=== PATIENT | female | born 1955 | race Asian ===

== ENCOUNTER → 2017-03-01 | Outpatient (CLI) | payer MEDICAID ==
[~2017-03-01] MED LIST: A20IH1 IH; ACET-2247 PO; ACET104 NEB; ASPI-1198 PO; B CO1CAP4 PO; BISA5TAB12 PR; DSS100 PO; FISH1CAP27 PO; HEP5KI SQ; INSU100V12 SQ; IPRNEB IH; LACT30L PO; METO25XL PO; MONT10TA21 PO; PANT40TA25 PO; PRED20 PO; PROMVCC5L PO; SIMV20TA6 PO
== END | disposition home or self-care (01) ==
LOC: RADPV 09:11
PROVIDERS: ATTEND Internal Medicine Nephrology
DX: Z01.89 Encounter for other specified special examinations (principal); I70.0 Atherosclerosis of aorta; N18.4 Chronic kidney disease, stage 4 (severe); M47.819 Spondylosis without myelopathy or radiculopathy, site unspecified
CPT/HCPCS: 71020

== ENCOUNTER → 2021-01-20 | Outpatient (CLI) | payer MEDICARE, MEDICAID ==
[~2021-01-20] VITALS: Ht 152.4 cm; Wt 76.0 kg
[~2021-01-20] MED LIST changes: -A20IH1 IH; -ACET-2247 PO; -ACET104 NEB; +AMLO5TAB66 PO; -ASPI-1198 PO; +ATOR40TA28 PO; -B CO1CAP4 PO; -BISA5TAB12 PR; +CALC0.25 PO; +CHOL-35 PO; +CINA30 PO; +CLOP75TA60 PO; -DSS100 PO; -FISH1CAP27 PO; +FLUT1BLS9 IH; -HEP5KI SQ; +INSU100I26 SQ; -INSU100V12 SQ; -IPRNEB IH; +ISOS30TA68 PO; -LACT30L PO; +LANT500T7 PO; +LIRA0.6P SQ; +METO25 PO; -METO25XL PO; -MONT10TA21 PO; -PANT40TA25 PO; -PRED20 PO; -PROMVCC5L PO; -SIMV20TA6 PO; +TICA60TA PO; +VIT-13 PO
[2021-01-20 10:57] VITALS: BP 108/65
== END | disposition home or self-care (01) ==
LOC: SRCNTR 09:58
PROVIDERS: ATTEND Internal Medicine Clinical Cardiac Electrophysiology
DX: I13.2 Hypertensive heart and chronic kidney disease with heart failure and with stage 5 chronic kidney disease, or end stage renal disease (principal); N18.6 End stage renal disease; I50.9 Heart failure, unspecified; E78.5 Hyperlipidemia, unspecified; I25.10 Atherosclerotic heart disease of native coronary artery without angina pectoris; Z99.2 Dependence on renal dialysis; Z95.810 Presence of automatic (implantable) cardiac defibrillator
CPT/HCPCS: Q3014

== ENCOUNTER → 2021-02-10 | Outpatient (CLI) | payer MEDICARE, MEDICAID ==
[~2021-02-10] MED LIST changes: -FLUT1BLS9 IH; -TICA60TA PO
== END | disposition home or self-care (01) ==
LOC: RADPV 09:16
PROVIDERS: ATTEND Internal Medicine Clinical Cardiac Electrophysiology
DX: I08.8 Other rheumatic multiple valve diseases (principal); I50.22 Chronic systolic (congestive) heart failure
CPT/HCPCS: 93306

== ENCOUNTER → 2021-05-19 | Outpatient (CLI) | payer MEDICARE, MEDICAID | END | disposition home or self-care (01) | LOC: RADPV 11:07 | PROVIDERS: ATTEND Internal Medicine Clinical Cardiac Electrophysiology | DX: I49.8 Other specified cardiac arrhythmias (principal); I45.10 Unspecified right bundle-branch block; I50.9 Heart failure, unspecified | CPT/HCPCS: 93005 ==

== ENCOUNTER → 2021-05-19 | Outpatient (CLI) | payer MEDICARE, MEDICAID ==
[~2021-05-19] VITALS: Ht 157.5 cm; Wt 75.3 kg
[2021-05-19 10:20] VITALS: BP 117/64
== END | disposition home or self-care (01) ==
LOC: SRCNTR 09:47
PROVIDERS: ATTEND Internal Medicine Clinical Cardiac Electrophysiology
DX: Z45.02 Encounter for adjustment and management of automatic implantable cardiac defibrillator (principal)
CPT/HCPCS: G0463

== ENCOUNTER 2022-11-10 00:55 | Inpatient (IN) | payer MEDICARE, MEDICAID ==
[~2022-11-10] VITALS: Ht 165.1 cm; Wt 78.4 kg
[2022-11-10] VITALS (15 sets, daily range): BP systolic 99–148; BP diastolic 56–89
[~2022-11-10 00:55] MED LIST changes: -CHOL-35 PO; +CHOL25TA4 PO; -CINA30 PO; +FOLI-130 PO; -LIRA0.6P SQ; -VIT-13 PO
[2022-11-10] MEDS ORDERED: ANAS1TAB50 PO (01:09)
[2022-11-10] MEDS ORDERED: CLOP75TA32 PO (01:09)
[2022-11-10 01:22] LABS: COVID AG,FIA SOURCE NASOPHARYNGEAL
[2022-11-10 01:31] LABS: EOSINOPHILS % (AUTO) 2.6 % (1.0-6.0); HEMATOCRIT 38.3 % (36-46); HEMOGLOBIN 11.7 g/dL (12.0-16.0); LYMPHOCYTES # (AUTO) 1.4 K/uL (1.0-4.8); MEAN CORPUSCULAR HEMOGLOBIN 24.1 pg (26.0-34.0); MEAN CORPUSCULAR HGB CONC 30.5 G/dL (31.0-37.0); MEAN CORPUSCULAR VOLUME 79 fL (80-100); MONOCYTES # (AUTO) 0.7 K/uL (0.1-1.0); MONOCYTES % (AUTO) 12.5 % (2.0-9.0); NEUTROPHILS # (AUTO) 3.1 K/uL (1.8-7.7); NEUTROPHILS % (AUTO) 57.9 % (40.0-70.0); PLATELET COUNT (AUTO) 77 K/uL (150-450); RED BLOOD CELL COUNT(AUTO) 4.85 MIL/uL (4.00-5.20); RED CELL DISTRIBUTION WIDTH 17.2 % (11.5-14.5)
[2022-11-10 01:32] LABS: ANION GAP 13 mmol/L (8-16); CALCIUM, TOTAL 10.5 mg/dL (8.8-10.5); CARBON DIOXIDE 28 mmol/L (22-29); CHLORIDE 91 mmol/L (98-107); CREATININE 7.63 mg/dL (0.60-1.30); GLOMERULAR FILTR. RATE CALC 5 mL/min (>60); GLUCOSE,RANDOM 134 mg/dL (70-110); POTASSIUM 5.1 mmol/L (3.5-5.1); SODIUM SERUM 132 mmol/L (136-145)
[2022-11-10 01:41] LABS: INFLUENZA TYPE A NEGATIVE FOR TYPE A (NEGATIVE); INFLUENZA TYPE B NEGATIVE FOR TYPE B (NEGATIVE)
[2022-11-10 01:48] LABS: ALANINE AMINOTRANSFERASE 23 U/L (12-78); ALBUMIN 3.5 g/dL (3.4-5.0); ALKALINE PHOSPHATASE 150 U/L (46-116); ASPARTATE AMINOTRANSFERASE 36 U/L (15-37); BILIRUBIN,TOTAL 0.9 mg/dL (0.1-1.0); CREATINE KINASE, TOTAL ONLY 96 U/L (26-192); TOTAL PROTEIN, SERUM 8.4 g/dL (6.4-8.2)
[2022-11-10 01:55] LABS: B-TYPE NATRIURETIC PEPTIDE > 5000 pg/mL (0-100)
[2022-11-10 02:10] LABS: LACTIC ACID 3.8 mmol/L (0.4-2.0)
[2022-11-10] MEDS ORDERED: FUROSEMIDE 40 MG/4 ML VIAL IVP ONE (02:15)
[2022-11-10] MEDS ORDERED: NITROGLYCERIN 2% (1 GM=INCH) OINTMENT PACKET TP ONE (02:15)
[2022-11-10] MEDS ORDERED: ALBUTEROL SULFATE 2.5 MG/0.5 ML NEB SOLUTION NEB ONE (02:25)
[2022-11-10] MEDS ORDERED: ACETAMINOPHEN 325 MG TABLET PO PRN (02:30)
[2022-11-10] MEDS ORDERED: ONDANSETRON HCL 4 MG/2 ML VIAL IVP PRN ×2 (02:30→03:15)
[2022-11-10] MEDS ORDERED: 0.9% SODIUM CHLORIDE 10 ML SYRINGE IVP PRN (02:30)
[2022-11-10] MEDS ORDERED: ALBUTEROL SULFATE 2.5 MG/0.5 ML NEB SOLUTION NEB PRN (03:15)
[2022-11-10] MEDS ORDERED: IPRATROPIUM BROMIDE 0.5 MG/2.5 ML NEB SOLUTION NEB PRN (03:15)
[2022-11-10 04:35] LABS: ABG BASE EXCESS 3.3 mmol/L (-2.0-3.0); ABG CARBOXYHEMOGLOBIN 0.9 % (0.0-1.5); ABG HCO3 27.5 mmol/L (22.0-26.0); ABG METHEMOGLOBIN 0.3 % (0.0-1.5); ABG OXYGEN CONTENT 15.5 mL/dL (15.0-23.0); ABG OXYGEN SATURATION 94.9 % (95.0-98.0); ABG OXYHEMOGLOBIN 93.8 % (94.0-100.0); ABG PCO2 34 mmHg (35-45); ABG PH 7.506 (7.35-7.450); ABG TOTAL HEMOGLOBIN 11.7 G/dL (12.0-18.0); O2 DEVICE,BLOOD GAS CANNULA (ROOM AIR); PO2, ARTERIAL BG 71.6 mmHg (79.0-87.0); SITE, BLOOD GAS RT RADIAL; SOURCE, BLOOD GAS ARTERIAL; TEMPERATURE, FAHRENHEIT, BG 98.6 FAHREN (96.0-98.6)
[2022-11-10] MEDS ORDERED: BUMETANIDE 0.25 MG/ML 4 ML VIAL IVP ONE (07:00)
[2022-11-10] MEDS: ACETAMINOPHEN 325 MG TABLET PO PRN ×2 (08:02→12:57)
[2022-11-10] MEDS: DOCUSATE SODIUM 100 MG CAPSULE PO SCH ×2 (08:03→21:00)
[2022-11-10] MEDS: HEPARIN SODIUM,PORCINE 5,000 UNITS/ML VIAL SQ SCH ×2 (08:03→16:00)
[2022-11-10] MEDS: CefTRIAXone 1 GM/DEXTROSE 50 ML IV SCH (08:04)
[2022-11-10] MEDS ORDERED: SODIUM CHLORIDE 0.9% 250 ML IV ONE (09:08)
[2022-11-10] MEDS: AZITHROMYCIN 500 MG/NS 250 ML IV SCH (10:17)
[2022-11-10] MEDS: MethylPREDNISolone SOD SUCC 40 MG/ML VIAL IVP SCH ×2 (11:24→17:27)
[2022-11-10] MEDS: SEVELAMER CARBONATE 800 MG TABLET PO SCH (12:57)
[2022-11-10] MEDS: IPRATROPIUM BROMIDE 0.5 MG/2.5 ML NEB SOLUTION NEB SCH (21:00)
[2022-11-10] MEDS: ALBUTEROL SULFATE 2.5 MG/0.5 ML NEB SOLUTION NEB SCH (21:00)
[2022-11-11] VITALS (13 sets, daily range): BP systolic 116–136; BP diastolic 59–82
[2022-11-11] MEDS: HEPARIN SODIUM,PORCINE 5,000 UNITS/ML VIAL SQ SCH ×4 (00:15→23:41)
[2022-11-11] MEDS: MethylPREDNISolone SOD SUCC 40 MG/ML VIAL IVP SCH ×3 (00:16→20:18)
[2022-11-11] MEDS ORDERED: DILTIAZEM HCL 5 MG/ML 5 ML VIAL IVP ONE (02:45)
[2022-11-11] MEDS: ACETAMINOPHEN 325 MG TABLET PO PRN (03:19)
[2022-11-11] MEDS: SEVELAMER CARBONATE 800 MG TABLET PO SCH ×3 (08:00→17:58)
[2022-11-11] MEDS: IPRATROPIUM BROMIDE 0.5 MG/2.5 ML NEB SOLUTION NEB SCH ×4 (08:11→20:21)
[2022-11-11] MEDS: ALBUTEROL SULFATE 2.5 MG/0.5 ML NEB SOLUTION NEB SCH ×4 (08:12→20:21)
[2022-11-11] MEDS: CefTRIAXone 1 GM/DEXTROSE 50 ML IV SCH (08:12)
[2022-11-11] MEDS: DOCUSATE SODIUM 100 MG CAPSULE PO SCH ×2 (08:13→20:19)
[2022-11-11] MEDS: INSULIN GLARGINE,HUM.REC.ANLOG 100 UNITS/ML SQ SCH (08:21)
[2022-11-11] MEDS: AZITHROMYCIN 500 MG/NS 250 ML IV SCH (10:07)
[2022-11-11 11:26] LABS: GLUCOMETER DEV NAME(LOC) 5S.1B; GLUCOSE,POINT OF CARE 191 MG/DL (70-110)
[2022-11-12 00:13] VITALS: BP 140/69
[2022-11-12 05:36] VITALS: BP 145/77
[2022-11-12 06:46] LABS: BASOPHILS % (AUTO) 0.1 % (0.0-2.0); EOSINOPHILS % (AUTO) 0.1 % (1.0-6.0); HEMATOCRIT 36.9 % (36-46); HEMOGLOBIN 11.5 g/dL (12.0-16.0); LYMPHOCYTES # (AUTO) 0.6 K/uL (1.0-4.8); LYMPHOCYTES % (AUTO) 6.6 % (22.0-44.0); MEAN CORPUSCULAR HEMOGLOBIN 24.2 pg (26.0-34.0); MEAN CORPUSCULAR HGB CONC 31.2 G/dL (31.0-37.0); MEAN CORPUSCULAR VOLUME 78 fL (80-100); MONOCYTES # (AUTO) 0.4 K/uL (0.1-1.0); MONOCYTES % (AUTO) 4.1 % (2.0-9.0); PLATELET COUNT (AUTO) 76 K/uL (150-450); RED BLOOD CELL COUNT(AUTO) 4.76 MIL/uL (4.00-5.20); RED CELL DISTRIBUTION WIDTH 17.2 % (11.5-14.5)
[2022-11-12 06:57] LABS: NEUTROPHILS % (AUTO) 89.1 % (40.0-70.0)
[2022-11-12] MEDS: ALBUTEROL SULFATE 2.5 MG/0.5 ML NEB SOLUTION NEB SCH ×4 (07:04→20:32)
[2022-11-12] MEDS: IPRATROPIUM BROMIDE 0.5 MG/2.5 ML NEB SOLUTION NEB SCH ×4 (07:04→20:32)
[2022-11-12 07:05] LABS: ALBUMIN 2.9 g/dL (3.4-5.0); BILIRUBIN,TOTAL 0.7 mg/dL (0.1-1.0); CALCIUM, TOTAL 11.3 mg/dL (8.8-10.5); CREATININE 5.12 mg/dL (0.60-1.30); POTASSIUM 4.6 mmol/L (3.5-5.1); TOTAL PROTEIN, SERUM 7.5 g/dL (6.4-8.2)
[2022-11-12 07:12] VITALS: BP 135/76
[2022-11-12] MEDS: SEVELAMER CARBONATE 800 MG TABLET PO SCH ×3 (09:18→17:50)
[2022-11-12] MEDS: HEPARIN SODIUM,PORCINE 5,000 UNITS/ML VIAL SQ SCH ×3 (09:22→23:58)
[2022-11-12] MEDS: DOCUSATE SODIUM 100 MG CAPSULE PO SCH ×2 (09:26→20:41)
[2022-11-12] MEDS: CefTRIAXone 1 GM/DEXTROSE 50 ML IV SCH (09:26)
[2022-11-12] MEDS: ACETAMINOPHEN 325 MG TABLET PO PRN (09:36)
[2022-11-12] MEDS: INSULIN GLARGINE,HUM.REC.ANLOG 100 UNITS/ML SQ SCH (09:43)
[2022-11-12] MEDS: MethylPREDNISolone SOD SUCC 40 MG/ML VIAL IVP SCH ×2 (09:46→20:40)
[2022-11-12] MEDS ORDERED: NITROGLYCERIN 0.4 MG SUBLINGUAL TABLET #25 SL ONE (10:00)
[2022-11-12] MEDS ORDERED: ASPIRIN 325 MG DR TABLET PO ONE (10:00)
[2022-11-12 10:12] VITALS: BP 132/80
[2022-11-12] MEDS: AZITHROMYCIN 500 MG/NS 250 ML IV SCH (10:20)
[2022-11-12] MEDS: EPOETIN ALFA 10,000 UNITS/ML 2 ML VIAL SQ SCH (10:20)
[2022-11-12] MEDS ORDERED: DEXTROSE 50%-WATER 25 GM/50 ML SYRINGE IVP PRN (12:30)
[2022-11-12] MEDS: INSULIN LISPRO 100 UNITS/ML SQ PRN ×3 (12:36→21:21)
[2022-11-12] MEDS: ISOSORBIDE MONONITRATE 30 MG ER TABLET PO SCH (12:46)
[2022-11-12] MEDS: ANASTROZOLE 1 MG TABLET PO SCH (13:50)
[2022-11-12 16:04] VITALS: BP 136/65
[2022-11-12 17:26] LABS: GLUCOMETER DEV NAME(LOC) 5N.2C; GLUCOSE,POINT OF CARE 253 MG/DL (70-110)
[2022-11-12] MEDS ORDERED: GuaiFENesin/D-METHORPHAN [SUGAR-FREE] 200-20MG/10 ML SYRUP UDCUP PO PRN (18:00)
[2022-11-12 20:04] VITALS: BP 148/80
[2022-11-12 20:31] LABS: GLUCOMETER DEV NAME(LOC) 5N.1C; GLUCOSE,POINT OF CARE 296 MG/DL (70-110)
[2022-11-13] VITALS (14 sets, daily range): BP systolic 130–148; BP diastolic 65–89
[2022-11-13 06:01] LABS: GLUCOMETER DEV NAME(LOC) 5S.1B; GLUCOSE,POINT OF CARE 310 MG/DL (70-110)
[2022-11-13] MEDS: INSULIN LISPRO 100 UNITS/ML SQ PRN ×3 (06:19→21:11)
[2022-11-13 06:20] LABS: BASOPHILS % (AUTO) 0.2 % (0.0-2.0); EOSINOPHILS % (AUTO) 0 % (1.0-6.0); HEMATOCRIT 35.8 % (36-46); HEMOGLOBIN 11.4 g/dL (12.0-16.0); LYMPHOCYTES # (AUTO) 0.5 K/uL (1.0-4.8); LYMPHOCYTES % (AUTO) 5.8 % (22.0-44.0); MEAN CORPUSCULAR HEMOGLOBIN 24.3 pg (26.0-34.0); MEAN CORPUSCULAR HGB CONC 31.8 G/dL (31.0-37.0); MEAN CORPUSCULAR VOLUME 77 fL (80-100); MONOCYTES # (AUTO) 0.4 K/uL (0.1-1.0); MONOCYTES % (AUTO) 4.6 % (2.0-9.0); NEUTROPHILS # (AUTO) 7.6 K/uL (1.8-7.7); PLATELET COUNT (AUTO) 88 K/uL (150-450); RED BLOOD CELL COUNT(AUTO) 4.67 MIL/uL (4.00-5.20)
[2022-11-13 06:22] LABS: NEUTROPHILS % (AUTO) 89.4 % (40.0-70.0)
[2022-11-13 06:30] LABS: ALBUMIN 3.1 g/dL (3.4-5.0); BILIRUBIN,TOTAL 0.7 mg/dL (0.1-1.0); CREATININE 7.46 mg/dL (0.60-1.30); POTASSIUM 4.5 mmol/L (3.5-5.1); TOTAL PROTEIN, SERUM 7.4 g/dL (6.4-8.2)
[2022-11-13 06:46] LABS: CALCIUM, TOTAL 11.7 mg/dL (8.8-10.5)
[2022-11-13 07:01] LABS: GLUCOMETER DEV NAME(LOC) 5S.1B; GLUCOSE,POINT OF CARE 202 MG/DL (70-110)
[2022-11-13] MEDS: HEPARIN SODIUM,PORCINE 5,000 UNITS/ML VIAL SQ SCH ×2 (08:00→09:57)
[2022-11-13] MEDS: ALBUTEROL SULFATE 2.5 MG/0.5 ML NEB SOLUTION NEB SCH ×4 (08:28→21:13)
[2022-11-13] MEDS: IPRATROPIUM BROMIDE 0.5 MG/2.5 ML NEB SOLUTION NEB SCH ×4 (08:28→21:13)
[2022-11-13] MEDS: CLOPIDOGREL BISULFATE 75 MG TABLET PO SCH (09:56)
[2022-11-13] MEDS: ISOSORBIDE MONONITRATE 30 MG ER TABLET PO SCH (09:56)
[2022-11-13] MEDS: SEVELAMER CARBONATE 800 MG TABLET PO SCH ×3 (09:56→17:19)
[2022-11-13] MEDS: DOCUSATE SODIUM 100 MG CAPSULE PO SCH ×2 (09:56→20:59)
[2022-11-13] MEDS: CefTRIAXone 1 GM/DEXTROSE 50 ML IV SCH (09:57)
[2022-11-13] MEDS: ANASTROZOLE 1 MG TABLET PO SCH (09:57)
[2022-11-13] MEDS: MethylPREDNISolone SOD SUCC 40 MG/ML VIAL IVP SCH ×2 (09:57→20:58)
[2022-11-13] MEDS: INSULIN GLARGINE,HUM.REC.ANLOG 100 UNITS/ML SQ SCH (10:13)
[2022-11-13] MEDS: AZITHROMYCIN 500 MG/NS 250 ML IV SCH (10:51)
[2022-11-13 12:41] LABS: GLUCOMETER DEV NAME(LOC) 5S.2C; GLUCOSE,POINT OF CARE 262 MG/DL (70-110)
[2022-11-13 12:41] LABS: GLUCOMETER DEV NAME(LOC) 5S.2C; GLUCOSE,POINT OF CARE 292 MG/DL (70-110)
[2022-11-13 17:51] LABS: GLUCOMETER DEV NAME(LOC) 5N.2C; GLUCOSE,POINT OF CARE 195 MG/DL (70-110)
[2022-11-13] MEDS: DEXTROSE 5%-0.45% SODIUM CHL 1,000 ML IV SCH (18:46)
[2022-11-13 21:26] LABS: GLUCOMETER DEV NAME(LOC) 5S.1B; GLUCOSE,POINT OF CARE 190 MG/DL (70-110)
[2022-11-14 04:01] VITALS: BP 142/84
[2022-11-14] MEDS: INSULIN LISPRO 100 UNITS/ML SQ PRN ×4 (05:55→20:16)
[2022-11-14 06:58] LABS: HEMATOCRIT 38.4 % (36-46); MEAN CORPUSCULAR HEMOGLOBIN 24.3 pg (26.0-34.0); MEAN CORPUSCULAR HGB CONC 31.2 G/dL (31.0-37.0); MEAN CORPUSCULAR VOLUME 78 fL (80-100); PLATELET COUNT (AUTO) 102 K/uL (150-450); RED BLOOD CELL COUNT(AUTO) 4.93 MIL/uL (4.00-5.20); RED CELL DISTRIBUTION WIDTH 17.5 % (11.5-14.5)
[2022-11-14] MEDS: IPRATROPIUM BROMIDE 0.5 MG/2.5 ML NEB SOLUTION NEB SCH ×4 (07:51→20:50)
[2022-11-14] MEDS: ALBUTEROL SULFATE 2.5 MG/0.5 ML NEB SOLUTION NEB SCH ×4 (07:51→20:51)
[2022-11-14 07:54] LABS: BILIRUBIN,TOTAL 0.9 mg/dL (0.1-1.0); CREATININE 4.69 mg/dL (0.60-1.30); POTASSIUM 4.9 mmol/L (3.5-5.1)
[2022-11-14 07:55] LABS: ALBUMIN 3.1 g/dL (3.4-5.0); TOTAL PROTEIN, SERUM 7.4 g/dL (6.4-8.2)
[2022-11-14 07:56] LABS: CALCIUM, TOTAL 11.6 mg/dL (8.8-10.5)
[2022-11-14] MEDS: SEVELAMER CARBONATE 800 MG TABLET PO SCH ×3 (08:00→17:57)
[2022-11-14] MEDS ORDERED: SODIUM CHLORIDE 0.9% 1,000 ML ONE (08:00)
[2022-11-14 08:27] VITALS: BP 125/76
[2022-11-14 08:38] LABS: BAND NEUTROPHILS % (MANUAL) 5 % (0-5); LYMPHOCYTES % (MANUAL) 4 % (22-44); SEGMENTED NEUTROPHILS % 91 % (40-70)
[2022-11-14 08:46] LABS: GLUCOMETER DEV NAME(LOC) 5S.2C; GLUCOSE,POINT OF CARE 254 MG/DL (70-110)
[2022-11-14] MEDS: DOCUSATE SODIUM 100 MG CAPSULE PO SCH ×2 (09:00→20:12)
[2022-11-14] MEDS: INSULIN GLARGINE,HUM.REC.ANLOG 100 UNITS/ML SQ SCH (09:00)
[2022-11-14] MEDS: CLOPIDOGREL BISULFATE 75 MG TABLET PO SCH (09:00)
[2022-11-14] MEDS: ISOSORBIDE MONONITRATE 30 MG ER TABLET PO SCH (09:00)
[2022-11-14] MEDS: ANASTROZOLE 1 MG TABLET PO SCH (09:00)
[2022-11-14] MEDS: PredniSONE 20 MG TABLET PO SCH (09:00)
[2022-11-14] MEDS: CefTRIAXone 1 GM/DEXTROSE 50 ML IV SCH (10:06)
[2022-11-14] MEDS: DEXTROSE 5%-0.45% SODIUM CHL 1,000 ML IV SCH ×2 (10:07→20:26)
[2022-11-14] MEDS ORDERED: INSULIN GLARGINE,HUM.REC.ANLOG 100 UNITS/ML SQ ONE (11:00)
[2022-11-14] MEDS: AZITHROMYCIN 500 MG/NS 250 ML IV SCH (11:05)
[2022-11-14 11:40] VITALS: BP 136/77
[2022-11-14] MEDS: CINACALCET HCL 30 MG TABLET PO SCH (13:45)
[2022-11-14 15:42] VITALS: BP 129/78
[2022-11-14 18:12] LABS: GLUCOMETER DEV NAME(LOC) 5S.2C; GLUCOSE,POINT OF CARE 210 MG/DL (70-110)
[2022-11-14 18:12] LABS: GLUCOMETER DEV NAME(LOC) 5S.2C; GLUCOSE,POINT OF CARE 239 MG/DL (70-110)
[2022-11-14 19:20] VITALS: BP 165/61
[2022-11-14] MEDS ORDERED: HydrALAZINE HCL 20 MG/ML VIAL IVP PRN (20:00)
[2022-11-14 20:11] LABS: GLUCOMETER DEV NAME(LOC) 5N.2C; GLUCOSE,POINT OF CARE 231 MG/DL (70-110)
[2022-11-14] MEDS: ACETAMINOPHEN 325 MG TABLET PO PRN (23:08)
[2022-11-14 23:45] VITALS: BP 152/73
[2022-11-15] VITALS (13 sets, daily range): BP systolic 113–148; BP diastolic 54–82
[2022-11-15] MEDS: ACETAMINOPHEN 325 MG TABLET PO PRN ×2 (03:19→18:04)
[2022-11-15] MEDS ORDERED: DIGOXIN 250 MCG/ML 2 ML AMP IVP ONE ×2 (04:30→18:15)
[2022-11-15] MEDS: INSULIN LISPRO 100 UNITS/ML SQ PRN ×3 (06:13→20:10)
[2022-11-15 06:58] LABS: EOSINOPHILS % (AUTO) 0.1 % (1.0-6.0); HEMATOCRIT 38.2 % (36-46); HEMOGLOBIN 11.9 g/dL (12.0-16.0); LYMPHOCYTES # (AUTO) 0.7 K/uL (1.0-4.8); MEAN CORPUSCULAR HEMOGLOBIN 24.1 pg (26.0-34.0); MEAN CORPUSCULAR HGB CONC 31.3 G/dL (31.0-37.0); MEAN CORPUSCULAR VOLUME 77 fL (80-100); MONOCYTES # (AUTO) 0.7 K/uL (0.1-1.0); MONOCYTES % (AUTO) 9.2 % (2.0-9.0); NEUTROPHILS # (AUTO) 6.2 K/uL (1.8-7.7); NEUTROPHILS % (AUTO) 81.7 % (40.0-70.0); PLATELET COUNT (AUTO) 87 K/uL (150-450); RED BLOOD CELL COUNT(AUTO) 4.95 MIL/uL (4.00-5.20); RED CELL DISTRIBUTION WIDTH 17.4 % (11.5-14.5)
[2022-11-15 07:06] LABS: GLUCOMETER DEV NAME(LOC) 5S.2C; GLUCOSE,POINT OF CARE 175 MG/DL (70-110)
[2022-11-15 07:33] LABS: ALBUMIN 2.9 g/dL (3.4-5.0); BILIRUBIN,TOTAL 0.8 mg/dL (0.1-1.0); CALCIUM, TOTAL 11.2 mg/dL (8.8-10.5); CREATININE 6.59 mg/dL (0.60-1.30); POTASSIUM 4.6 mmol/L (3.5-5.1)
[2022-11-15] MEDS: CefTRIAXone 1 GM/DEXTROSE 50 ML IV SCH (07:50)
[2022-11-15] MEDS: IPRATROPIUM BROMIDE 0.5 MG/2.5 ML NEB SOLUTION NEB SCH ×4 (07:55→19:33)
[2022-11-15] MEDS: ALBUTEROL SULFATE 2.5 MG/0.5 ML NEB SOLUTION NEB SCH ×4 (07:55→19:33)
[2022-11-15] MEDS: CINACALCET HCL 30 MG TABLET PO SCH (08:00)
[2022-11-15] MEDS: SEVELAMER CARBONATE 800 MG TABLET PO SCH ×3 (08:00→15:05)
[2022-11-15 08:03] LABS: MAGNESIUM 2.9 mg/dL (1.80-2.40); PHOSPHORUS 7.4 mg/dL (2.5-4.9)
[2022-11-15] MEDS: AZITHROMYCIN 500 MG/NS 250 ML IV SCH (08:35)
[2022-11-15] MEDS: ISOSORBIDE MONONITRATE 30 MG ER TABLET PO SCH (08:37)
[2022-11-15] MEDS: CLOPIDOGREL BISULFATE 75 MG TABLET PO SCH (08:37)
[2022-11-15] MEDS: ANASTROZOLE 1 MG TABLET PO SCH (08:37)
[2022-11-15] MEDS: DOCUSATE SODIUM 100 MG CAPSULE PO SCH ×2 (08:37→20:09)
[2022-11-15] MEDS: PredniSONE 20 MG TABLET PO SCH (08:38)
[2022-11-15] MEDS: EPOETIN ALFA 10,000 UNITS/ML 2 ML VIAL SQ SCH ×2 (08:39→08:47)
[2022-11-15] MEDS: INSULIN GLARGINE,HUM.REC.ANLOG 100 UNITS/ML SQ SCH ×2 (08:41→08:47)
[2022-11-15 10:16] LABS: GLUCOMETER DEV NAME(LOC) 5S.1B; GLUCOSE,POINT OF CARE 203 MG/DL (70-110)
[2022-11-15] MEDS: DEXTROSE 5%-0.45% SODIUM CHL 1,000 ML IV SCH (10:49)
[2022-11-15] MEDS ORDERED: SODIUM CHLORIDE 0.9% 1,000 ML ONE (11:14)
[2022-11-15 14:01] LABS: GLUCOMETER DEV NAME(LOC) 5S.2C; GLUCOSE,POINT OF CARE 112 MG/DL (70-110)
[2022-11-15] MEDS: CARVEDILOL 3.125 MG TABLET PO SCH ×2 (15:05→20:09)
[2022-11-15 17:21] LABS: GLUCOMETER DEV NAME(LOC) 5S.1B; GLUCOSE,POINT OF CARE 182 MG/DL (70-110)
[2022-11-15] MEDS: AMIODARONE HCL 200 MG TABLET PO SCH (18:00)
[2022-11-15] MEDS ORDERED: DEXTROSE 50%-WATER 25 GM/50 ML SYRINGE IVP PRN (19:45)
[2022-11-15 19:50] LABS: GLUCOMETER DEV NAME(LOC) 5N.2C; GLUCOSE,POINT OF CARE 206 MG/DL (70-110)
[2022-11-16] VITALS: BP 134/82
[2022-11-16 04:00] VITALS: BP 137/76
[2022-11-16] MEDS: INSULIN LISPRO 100 UNITS/ML SQ PRN ×4 (05:49→20:23)
[2022-11-16 05:52] LABS: GLUCOMETER DEV NAME(LOC) 5N.1C; GLUCOSE,POINT OF CARE 114 MG/DL (70-110)
[2022-11-16 05:52] LABS: GLUCOMETER DEV NAME(LOC) 5N.1C; GLUCOSE,POINT OF CARE 54 MG/DL (70-110)
[2022-11-16 06:39] LABS: ALBUMIN 2.7 g/dL (3.4-5.0); BILIRUBIN,TOTAL 0.9 mg/dL (0.1-1.0); CALCIUM, TOTAL 10.2 mg/dL (8.8-10.5); CREATININE 5.89 mg/dL (0.60-1.30); POTASSIUM 4.9 mmol/L (3.5-5.1); TOTAL PROTEIN, SERUM 6.8 g/dL (6.4-8.2)
[2022-11-16 06:50] LABS: HEMATOCRIT 39.8 % (36-46); HEMOGLOBIN 12.5 g/dL (12.0-16.0); MEAN CORPUSCULAR HEMOGLOBIN 24.2 pg (26.0-34.0); MEAN CORPUSCULAR HGB CONC 31.4 G/dL (31.0-37.0); MEAN CORPUSCULAR VOLUME 77 fL (80-100); RED BLOOD CELL COUNT(AUTO) 5.16 MIL/uL (4.00-5.20); RED CELL DISTRIBUTION WIDTH 18.1 % (11.5-14.5)
[2022-11-16 07:14] LABS: BAND NEUTROPHILS % (MANUAL) 0 % (0-5); PLATELET COUNT (AUTO) 84 K/uL (150-450)
[2022-11-16 07:16] LABS: CORRECTED WHITE BLOOD COUNT 6.3 K/uL (4.5-11.0); LYMPHOCYTES % (MANUAL) 9 % (22-44); SEGMENTED NEUTROPHILS % 91 % (40-70)
[2022-11-16 07:23] LABS: DIGOXIN 1.27 ng/mL (0.90-2.00)
[2022-11-16] MEDS: SEVELAMER CARBONATE 800 MG TABLET PO SCH ×3 (08:07→17:17)
[2022-11-16] MEDS: CefTRIAXone 1 GM/DEXTROSE 50 ML IV SCH (08:07)
[2022-11-16] MEDS: CINACALCET HCL 30 MG TABLET PO SCH (08:07)
[2022-11-16] MEDS: CARVEDILOL 3.125 MG TABLET PO SCH ×2 (08:08→20:22)
[2022-11-16] MEDS: CLOPIDOGREL BISULFATE 75 MG TABLET PO SCH (08:08)
[2022-11-16] MEDS: PredniSONE 20 MG TABLET PO SCH (08:08)
[2022-11-16] MEDS: ISOSORBIDE MONONITRATE 30 MG ER TABLET PO SCH (08:08)
[2022-11-16] MEDS: AZITHROMYCIN 500 MG/NS 250 ML IV SCH (08:08)
[2022-11-16] MEDS: AMIODARONE HCL 200 MG TABLET PO SCH (08:08)
[2022-11-16] MEDS: ANASTROZOLE 1 MG TABLET PO SCH (08:08)
[2022-11-16] MEDS: DOCUSATE SODIUM 100 MG CAPSULE PO SCH ×2 (08:08→20:22)
[2022-11-16] MEDS: INSULIN GLARGINE,HUM.REC.ANLOG 100 UNITS/ML SQ SCH (08:09)
[2022-11-16] MEDS: ALBUTEROL SULFATE 2.5 MG/0.5 ML NEB SOLUTION NEB SCH ×4 (08:44→19:18)
[2022-11-16] MEDS: IPRATROPIUM BROMIDE 0.5 MG/2.5 ML NEB SOLUTION NEB SCH ×4 (08:45→19:18)
[2022-11-16 08:53] VITALS: BP 143/75
[2022-11-16 12:21] LABS: GLUCOMETER DEV NAME(LOC) 5N.2C; GLUCOSE,POINT OF CARE 211 MG/DL (70-110)
[2022-11-16 13:59] VITALS: BP 143/70
[2022-11-16 16:41] VITALS: BP 144/69
[2022-11-16] MEDS: APIXABAN 2.5 MG TABLET PO SCH ×2 (17:17→20:22)
[2022-11-16 20:00] VITALS: BP 153/72
[2022-11-16 20:56] LABS: GLUCOMETER DEV NAME(LOC) 5S.1B; GLUCOSE,POINT OF CARE 271 MG/DL (70-110)
[2022-11-16 20:56] LABS: GLUCOMETER DEV NAME(LOC) 5S.1B; GLUCOSE,POINT OF CARE 203 MG/DL (70-110)
[2022-11-16 23:11] LABS: GLUCOMETER DEV NAME(LOC) 5S.2C; GLUCOSE,POINT OF CARE 173 MG/DL (70-110)
[2022-11-17] VITALS (15 sets, daily range): BP systolic 109–164; BP diastolic 46–82
[2022-11-17] MEDS: ACETAMINOPHEN 325 MG TABLET PO PRN (01:13)
[2022-11-17] MEDS: INSULIN LISPRO 100 UNITS/ML SQ PRN ×3 (05:49→17:34)
[2022-11-17 06:06] LABS: GLUCOMETER DEV NAME(LOC) 5S.2C; GLUCOSE,POINT OF CARE 157 MG/DL (70-110)
[2022-11-17 06:26] LABS: BASOPHILS % (AUTO) 0.1 % (0.0-2.0); EOSINOPHILS % (AUTO) 4.3 % (1.0-6.0); HEMATOCRIT 39.5 % (36-46); HEMOGLOBIN 12.6 g/dL (12.0-16.0); LYMPHOCYTES # (AUTO) 0.5 K/uL (1.0-4.8); LYMPHOCYTES % (AUTO) 6.9 % (22.0-44.0); MEAN CORPUSCULAR HEMOGLOBIN 24.6 pg (26.0-34.0); MEAN CORPUSCULAR HGB CONC 31.8 G/dL (31.0-37.0); MEAN CORPUSCULAR VOLUME 77 fL (80-100); MONOCYTES # (AUTO) 0.8 K/uL (0.1-1.0); MONOCYTES % (AUTO) 9.8 % (2.0-9.0); NEUTROPHILS # (AUTO) 6.3 K/uL (1.8-7.7); NEUTROPHILS % (AUTO) 78.9 % (40.0-70.0); PLATELET COUNT (AUTO) 73 K/uL (150-450); RED BLOOD CELL COUNT(AUTO) 5.12 MIL/uL (4.00-5.20)
[2022-11-17 06:45] LABS: ALBUMIN 2.8 g/dL (3.4-5.0); BILIRUBIN,TOTAL 0.7 mg/dL (0.1-1.0); CALCIUM, TOTAL 10.9 mg/dL (8.8-10.5); CREATININE 7.35 mg/dL (0.60-1.30); POTASSIUM 5.8 mmol/L (3.5-5.1); TOTAL PROTEIN, SERUM 6.9 g/dL (6.4-8.2)
[2022-11-17] MEDS: SEVELAMER CARBONATE 800 MG TABLET PO SCH ×3 (08:00→17:37)
[2022-11-17] MEDS ORDERED: CINACALCET HCL 30 MG TABLET PO SCH (08:15)
[2022-11-17] MEDS: IPRATROPIUM BROMIDE 0.5 MG/2.5 ML NEB SOLUTION NEB SCH ×3 (08:24→16:54)
[2022-11-17] MEDS: ALBUTEROL SULFATE 2.5 MG/0.5 ML NEB SOLUTION NEB SCH ×3 (08:24→16:55)
[2022-11-17] MEDS: INSULIN GLARGINE,HUM.REC.ANLOG 100 UNITS/ML SQ SCH (09:00)
[2022-11-17] MEDS ORDERED: SODIUM CHLORIDE 0.9% 2,000 ML ONE (12:02)
[2022-11-17] MEDS: CefTRIAXone 1 GM/DEXTROSE 50 ML IV SCH (12:14)
[2022-11-17] MEDS: AZITHROMYCIN 500 MG/NS 250 ML IV SCH (12:15)
[2022-11-17] MEDS: ANASTROZOLE 1 MG TABLET PO SCH (12:15)
[2022-11-17] MEDS: APIXABAN 2.5 MG TABLET PO SCH (12:16)
[2022-11-17] MEDS: AMIODARONE HCL 200 MG TABLET PO SCH (12:16)
[2022-11-17] MEDS: CARVEDILOL 3.125 MG TABLET PO SCH (12:16)
[2022-11-17] MEDS: DOCUSATE SODIUM 100 MG CAPSULE PO SCH (12:16)
[2022-11-17] MEDS: PredniSONE 20 MG TABLET PO SCH (12:16)
[2022-11-17] MEDS: ISOSORBIDE MONONITRATE 30 MG ER TABLET PO SCH (12:16)
[2022-11-17] MEDS: EPOETIN ALFA 10,000 UNITS/ML 2 ML VIAL SQ SCH (12:17)
[2022-11-17] MEDS: CLOPIDOGREL BISULFATE 75 MG TABLET PO SCH (12:17)
[2022-11-17] MEDS ORDERED: AMOX1TAB16 PO (15:28)
[2022-11-17] MEDS ORDERED: CARV3 PO (15:28)
[2022-11-17] MEDS ORDERED: AMIO200 PO (15:28)
[2022-11-17] MEDS ORDERED: APIX2.5T PO (15:28)
[2022-11-17] MEDS ORDERED: CINA30 PO (15:28)
[2022-11-17] MEDS ORDERED: PRED-729 PO (15:28)
[2022-11-17] MEDS ORDERED: SEVE800T17 PO (15:28)
[2022-11-17] MEDS ORDERED: ALBU18HF12 IH (15:29)
[2022-11-17 17:01] LABS: GLUCOMETER DEV NAME(LOC) 5N.2C; GLUCOSE,POINT OF CARE 138 MG/DL (70-110)
[2022-11-18 02:11] LABS: GLUCOMETER DEV NAME(LOC) 5S.1B; GLUCOSE,POINT OF CARE 246 MG/DL (70-110)
== END 2022-11-17 18:15 | disposition home or self-care (01) | DRG 280 ==
LOC: EMS 00:56 → 5S 02:00
PROVIDERS: ADMIT Internal Medicine; ATTEND Internal Medicine
PROC: 5A09357 Assistance with Respiratory Ventilation, Less than 24 Consecutive Hours, Continuous Positive Airway Pressure (ICD-10-PCS; principal; 2022-11-10)
PROC: 5A1D70Z Performance of Urinary Filtration, Intermittent, Less than 6 Hours Per Day (ICD-10-PCS; 2022-11-10)
PROC: 5A1D70Z Performance of Urinary Filtration, Intermittent, Less than 6 Hours Per Day (ICD-10-PCS; 2022-11-11)
PROC: 5A1D70Z Performance of Urinary Filtration, Intermittent, Less than 6 Hours Per Day (ICD-10-PCS; 2022-11-13)
PROC: 05HB33Z Insertion of Infusion Device into Right Basilic Vein, Percutaneous Approach (ICD-10-PCS; 2022-11-14)
PROC: 0DJ08ZZ Inspection of Upper Intestinal Tract, Via Natural or Artificial Opening Endoscopic (ICD-10-PCS; 2022-11-15)
PROC: 5A1D70Z Performance of Urinary Filtration, Intermittent, Less than 6 Hours Per Day (ICD-10-PCS; 2022-11-15)
PROC: 5A1D70Z Performance of Urinary Filtration, Intermittent, Less than 6 Hours Per Day (ICD-10-PCS; 2022-11-17)
DX: I13.2 Hypertensive heart and chronic kidney disease with heart failure and with stage 5 chronic kidney disease, or end stage renal disease (principal); I21.A1 Myocardial infarction type 2; I50.23 Acute on chronic systolic (congestive) heart failure; J18.9 Pneumonia, unspecified organism; N18.6 End stage renal disease; J96.01 Acute respiratory failure with hypoxia; E87.20 Acidosis, unspecified; J44.1 Chronic obstructive pulmonary disease with (acute) exacerbation; J44.0 Chronic obstructive pulmonary disease with (acute) lower respiratory infection; E87.4 Mixed disorder of acid-base balance; I25.10 Atherosclerotic heart disease of native coronary artery without angina pectoris; Z20.822 Contact with and (suspected) exposure to COVID-19; E78.00 Pure hypercholesterolemia, unspecified; E21.3 Hyperparathyroidism, unspecified; I25.5 Ischemic cardiomyopathy; I48.91 Unspecified atrial fibrillation; I34.0 Nonrheumatic mitral (valve) insufficiency; E87.5 Hyperkalemia; R13.10 Dysphagia, unspecified; D64.9 Anemia, unspecified; E11.21 Type 2 diabetes mellitus with diabetic nephropathy; E11.22 Type 2 diabetes mellitus with diabetic chronic kidney disease; Z99.2 Dependence on renal dialysis; Z79.01 Long term (current) use of anticoagulants; Z79.899 Other long term (current) drug therapy; Z79.02 Long term (current) use of antithrombotics/antiplatelets; Z79.4 Long term (current) use of insulin; Z95.5 Presence of coronary angioplasty implant and graft; Z85.3 Personal history of malignant neoplasm of breast; Z87.442 Personal history of urinary calculi; Z90.5 Acquired absence of kidney; Z95.1 Presence of aortocoronary bypass graft; Z95.810 Presence of automatic (implantable) cardiac defibrillator; Z82.49 Family history of ischemic heart disease and other diseases of the circulatory system; Z83.3 Family history of diabetes mellitus
CPT/HCPCS: 36245; 36569; 71045; 71250; 76937; 80053; 80162; 82550; 82805; 82962; 83605; 83735; 83880; 83970; 84100; 84484; 85025; 87040; 87081; 87340; 87804; 90935; 92526; 92610; 93005; 93306; 94640; 94660; 97116; 97162; 97530; 99291; G0378; J0360; J0456; J0696; J0885; J1160; J1644; J1815; J1940; J2920; J3490; J7030; J7050; 36415-L1; 36415-TC; J7613

== ENCOUNTER 2023-09-28 16:14 | Emergency (ER) | payer MEDICARE, MEDICAID ==
[~2023-09-28] VITALS: Ht 157.5 cm; Wt 63.0 kg
[~2023-09-28 16:14] MED LIST changes: -AMLO5TAB66 PO; +APIX2.5T PO; -CALC0.25 PO; +CEFT1VIA65 IV; -CHOL25TA4 PO; +CINA30 PO; -CLOP75TA60 PO; -FOLI-130 PO; -ISOS30TA68 PO; -LANT500T7 PO; -METO25 PO; +SEVE800T38 PO
[2023-09-28 16:18] VITALS: BP 108/57; PULSE 100; RESP 16; TEMP 97.9
== END 2023-09-28 19:40 | disposition home or self-care (01) ==
LOC: EMS 16:14
DX: I12.0 Hypertensive chronic kidney disease with stage 5 chronic kidney disease or end stage renal disease (principal); E11.9 Type 2 diabetes mellitus without complications; E78.00 Pure hypercholesterolemia, unspecified; I10 Essential (primary) hypertension; Z99.2 Dependence on renal dialysis
CPT/HCPCS: 99281; Z7502